=== PATIENT | female | born 2000 | race Caucasian/White ===

== ENCOUNTER → 2023-01-13 18:59 | Outpatient (BNVA) | payer BC, MEDICAID, SELFPAY | PROVIDERS: Visit Provider Registered Nurse Neonatal Intensive Care | DX: J02.9 Acute pharyngitis, unspecified (principal) | CPT/HCPCS: 87880 ==

== ENCOUNTER → 2023-06-11 11:12 | Outpatient (BNVA) | payer BC, MEDICAID, SELFPAY | PROVIDERS: PCP Internal Medicine Hematology; Visit Provider Nurse Practitioner Women's Health | DX: N94.6 Dysmenorrhea, unspecified (principal) | CPT/HCPCS: 76830 ==

== ENCOUNTER 2023-08-15 05:49 | Day surgery (SDC) | payer BC, MEDICAID, SELFPAY ==
--- NOTE | 2023-08-14 22:24 | W.PM.OPSFHP ---
Same Day Surgery H&P Indication for Procedure/HPI DATE OF PROCEDURE: August 14, 2023 CHIEF COMPLAINT/INDICATIONFOR SURGICAL PROCEDURE: chronic pelvic pain PREOP DIAGNOSIS: chronic pelvic pain PLANNED PROCEDURE: Operation Date: 08/15/23 07:00 Proposed Procedures p Laparoscopy 12524, possible pelvic biopsies 59305, Possible fulguration of endometriotic implants 21920, R10.2, G89.29(Not Applicable) - Mario Mabry MD s Laparoscopy 30744, possible pelvic biopsies 54527, Possible fulguration of endometriotic implants 12896, R10.2 G89.29(Not Applicable) - Mario Mabry MD 22 y.o. G0 + h/o chronic pelvic pain x several years No h/o sexually transmitted infections Pain present every day, not just during periods Can last the whole day Some days are better + painful intercourse Now scheduled for laparoscopy, possible pelvic biopsies, possible fulguration of endometriotic implants PMHx: POTS Asthma IBS PSHx: knee surgeries x two All: penicillins Medications/Allergies* Home Medications Medication Instructions Recorded Confirmed Type metoprolol tartrate 25 mg tablet 50 mg PO BID 07/04/23 08/14/23 History Allergies/Adverse Reactions Allergy/AdvReac Type Severity Reaction Status Date / Time chocolate flavor Allergy Severe ALGY-Anaphy Verified 08/14/23 09:02 laxis melon Allergy Severe ALGY-Anaphy Verified 08/14/23 09:02 laxis Penicillins Allergy Mild loose Verified 08/14/23 09:02 stools Pertinent History/Comorbid Conditions* Family History (Updated 05/27/23 @ 14:47 by Maria Dolores Lopez [facility]) Ovarian cancer Grandmother Maternal Breast cancer Family/Other Two Maternal cousins Denies family history of Cervical cancer Colon cancer Diabetes High cholesterol Hypertension Uterine cancer Thyroid disease Stroke Pertinent Exam Findings alert, oriented x 3, clear to auscultation bilaterally and regular rate & rhythm Pertinent Data Pelvic sono 06-11-23 normal uterus and ovaries Recommendations Surgery/Procedure today Other Plans: surgery / procedure August 15, 2023 Coding Level of Care Code Acute Code for Chg Fwd Diagnoses Time Spent (min) 20
[2023-08-15] VITALS (11 sets, daily range): BP systolic 92–130; BP diastolic 56–84; PULSE 71–95; RESP 13–21; TEMP 36.3–37.2; O2SAT 95–100; BMI 21.1
[2023-08-15 06:10] LABS: OR HCG Qualitative Urine Negative (Negative)
[2023-08-15] MEDS: sodium chloride 0.9% 1,000 ML 30 ML IV (06:21)
[2023-08-15] MEDS: scopolamine 1.5 Patch 1 PATCH TRANSDERMA (06:38)
--- NOTE | 2023-08-15 06:38 | ANES.PREANE2 ---
Pre-Anesthetic Assessment Height/Weight: Height 1.7 m Weight 61.235 kg Temp Pulse Resp BP Pulse Ox O2 Del Method 98.1 F 85 16 123/79 100 Room Air 08/15/23 06:13 08/15/23 06:13 08/15/23 06:13 08/15/23 06:13 08/15/23 06:13 08/15/23 06:15 Preop Diagnosis: chronic pelvic pain Operation Date: 08/15/23 07:00 Proposed Procedures p Laparoscopy 61759, possible pelvic biopsies 37955, Possible fulguration of endometriotic implants 02991, R10.2, G89.29(Not Applicable) - Mario Mabry MD s Laparoscopy 06983, possible pelvic biopsies 99627, Possible fulguration of endometriotic implants 01484, R10.2 G89.29(Not Applicable) - Mario Mabry MD Familial anesthetic complications: PONV Was Beta Ranulfo taken within 24 hours: Yes Was Clonidine taken within 24 hours: N/A Last intake: Intake Last Liquid Date 08/14/23 Last Liquid Time 21:00 Last Solid Date 08/14/23 Last Solid Time 18:00 Social No alcohol and No tobacco Exam alert, oriented x 3, clear to auscultation bilaterally and regular rate & rhythm Airway Mallampati: Class I Dentition: full and other (2 front teeth are fake) CV/HEM POTS on metoprolol Anesthetic Plan ASA status: 2 Anesthesia: General Risk of > 500 ml blood loss (7ml/kg in children): No Medications/Allergies Home Medications Medication Instructions Recorded Confirmed Last Taken Type metoprolol tartrate 25 mg tablet 50 mg PO BID 07/04/23 08/14/23 08/14/23 History norethindrone 1 mg-ethinyl 1 tab PO DAILY #84 tabs 07/04/23 08/14/23 08/13/23 Rx estradiol 35 mcg tablet Allergies Allergy/AdvReac Type Severity Reaction Status Date / Time chocolate flavor Allergy Severe ALGY-Anaphy Verified 08/14/23 09:02 laxis melon Allergy Severe ALGY-Anaphy Verified 08/14/23 09:02 laxis Penicillins Allergy Mild loose Verified 08/14/23 09:02 stools Current Medications Generic Name Dose Route Start Last Admin Trade Name Freq PRN Reason Stop Dose Admin Sodium Chloride 1,000 mls @ 30 mls/hr 08/15/23 06:00 08/15/23 06:21 Sodium Chloride 0.9% IV 08/16/23 05:59 30 mls/hr .Q24H KARI Administration PFSH Anesthesia Family History Grandmother Ovarian cancer Maternal Family/Other Breast cancer Two Maternal cousins Denies family history of Cervical cancer Colon cancer Diabetes High cholesterol Hypertension Uterine cancer Thyroid disease Stroke Female Reproductive History Date of last menstrual period: 08/04/23 Data Anesthesia Cardiac Studies: No Data to Display
--- NOTE | 2023-08-15 06:40 | P.HPUD_ITS ---
Surgery/Procedure H&P Update DATE OF PROCEDURE: August 15, 2023 DATE H&P PERFORMED: 08/14/23 PREOP DIAGNOSIS: chronic pelvic pain PRIMARY INDICATION FOR PROCEDURE: chronic pelvic pain PLANNED PROCEDURE: Operation Date: 08/15/23 07:00 Proposed Procedures p Laparoscopy 45049, possible pelvic biopsies 99673, Possible fulguration of endometriotic implants 12585, R10.2, G89.29(Not Applicable) - Mario Mabry MD s Laparoscopy 02578, possible pelvic biopsies 33032, Possible fulguration of endometriotic implants 02903, R10.2 G89.29(Not Applicable) - Mario Mabry MD
--- NOTE | 2023-08-15 06:40 | W.PM.OPSUD ---
Surgery/Procedure H&P Update DATE OF PROCEDURE: August 15, 2023 DATE H&P PERFORMED: 08/14/23 PREOP DIAGNOSIS: chronic pelvic pain PRIMARY INDICATION FOR PROCEDURE: chronic pelvic pain PLANNED PROCEDURE: Operation Date: 08/15/23 07:00 Proposed Procedures p Laparoscopy 03339, possible pelvic biopsies 82419, Possible fulguration of endometriotic implants 39485, R10.2, G89.29(Not Applicable) - Mario Mabry MD s Laparoscopy 47912, possible pelvic biopsies 16244, Possible fulguration of endometriotic implants 97853, R10.2 G89.29(Not Applicable) - Mario Mabry MD
[2023-08-15] MEDS: BUPivacaine 0.5% INJ 10 mL INJECTION (07:50)
--- NOTE | 2023-08-15 09:10 | P.OP_ITS ---
Operative Report Date of procedure: August 15, 2023 Pre-op diagnosis: Chronic pelvic pain Post-op diagnosis: same Post-op diagnosis: normal pelvis Post-op findings: Normal pelvis No evidence of endometriosis Procedure done: Laparoscopy Implants: none Specimens removed/disposition: none Surgeon: Mario Mabry MD Anesthesia: General Estimated blood loss (mL): 0 Complications: none Condition: stable Disposition: PACU Brief History: 22 y.o. with chronic pelvic pain Procedure: Informed consent obtained.? The patient was taken to the OR and placed supine on the table.? General endotracheal anesthesia was given.? The patient was then placed in dorsolithotomy position.? The abdomen and perineum were prepped and draped in usual fashion.? A garcia catheter was placed.? A sharp-toothed tenaculum was placed.? A 5 mm subumbilical skin incision was made.? A laparoscopic trocar with sheath was inserted into the peritoneal cavity under direct vision with the laparoscope.? Pneumoperitoneum was achieved.? Two separate 5 mm incisions were made in the right and left mid-abdominal quadrants under direct visualization to accommodate additional trocars and sheaths.? The pelvis was explored with the laparoscope.? Normal uterus and ovaries were seen.? Normal fallopian tubes were seen.? No abnormalities were seen in the utero-ovarian ligaments, broad ligaments, anterior and posterior cul-de-sacs and pelvic side-aleman.? No white or red lesions, fenestrations, or vascular abnormalities were seen.? There were no stellate lesions or fibrosis/adhesions seen. ??No bleeding was seen The liver edge was visualized and was normal.? The remainder of the pelvis was again examined and seen to be normal. All instruments were then removed from the abdominal cavity after the pneumoperitoneum was allowed to escape.? The skin incisions were closed with 4-O monocryl.? Dermabond was applied.? The garcia catheter and sharp-toothed ten aculum were removed.? There was no bleeding from the cervix. The patient was then awakened and taken to the recovery room in good condition. Postop condition stable.? EBL? 0 cc.? There were no complications.
--- NOTE | 2023-08-15 09:17 | PC.NURSE ---
Incisions x 3 C/D/I and well approximated. Dermadond closure. Post op education provided to patient and mother. Verbalized understanding. Denies pain or N/V. Tolerating fluids and crackers.
--- NOTE | 2023-08-15 09:25 | ANE.PACU2 ---
Inpatient post-anesthesia follow up: Airway intact: Yes Vital signs: Temperature 97.9 F Pulse Rate 90 Respiratory Rate 18 Blood Pressure 130/77 Pulse Oximetry 99 Oxygen Delivery Me thod Room Air Oxygen Flow Rate 10 Fraction of Inspir ed Oxygen Hydration adequate: Yes Nausea and vomiting: No Pain level: 1 Mental status: Baseline
== END 2023-08-15 09:25 | disposition home or self-care (01) ==
PROVIDERS: PCP Internal Medicine Hematology; Visit Provider Obstetrics & Gynecology
PROC: (CPT 49320; principal; 2023-08-15 07:00)
DX: R10.2 Pelvic and perineal pain (principal); G89.29 Other chronic pain; Z80.41 Family history of malignant neoplasm of ovary
CPT/HCPCS: 49320; 51702; 81025; 84703; J1100; J1170; J1200; J1885; J2250; J2405; J2704; J3010; J3490; J7030